=== PATIENT | female | born 1985 | race Hispanic/Latino ===

== ENCOUNTER 2019-01-20 05:56 | Inpatient (IN) | payer OTHER | END 2019-01-22 17:55 | disposition home or self-care (01) | LOC: LDH 05:56 → WSH 16:15 | PROC: 10E0XZZ Delivery of Products of Conception, External Approach (ICD-10-PCS; principal; 2019-01-21 09:06) | PROC: 0UB70ZZ Excision of Bilateral Fallopian Tubes, Open Approach (ICD-10-PCS; 2019-01-21 09:06) | DX: O80 Encounter for full-term uncomplicated delivery (principal); Z37.0 Single live birth; Z3A.39 39 weeks gestation of pregnancy; Z30.2 Encounter for sterilization ==

== ENCOUNTER 2019-05-28 19:35 | Emergency (ER) | payer OTHER ==
[~2019-05-28 19:35] MED LIST: FERR-82 PO; PREN-196 PO
[2019-05-28] MEDS ORDERED: HYDROCODONE/ACETAMINOPHEN 10/325 MG TAB ONE (20:22)
[2019-05-28] MEDS ORDERED: KETOROLAC TROMETHAMINE 60 MG/2 ML VIAL ONE (20:22)
== END 2019-05-28 21:52 | disposition home or self-care (01) ==
LOC: EDH 19:35
DX: T81.31XA Disruption of external operation (surgical) wound, not elsewhere classified, initial encounter (principal); Z98.890 Other specified postprocedural states
CPT/HCPCS: 96372; 99283; J1885